=== PATIENT | male | born 2005 | race Caucasian/White ===

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

== ENCOUNTER 2024-02-05 08:12 | Emergency (ER) | payer BC, OTHER ==
[~2024-02-05] VITALS: Ht 177.8 cm; Wt 130.2 kg
[~2024-02-05 08:12] MED LIST: NOXI1TAB PO; ONDA-282 PO
[2024-02-05] MEDS ORDERED: IBUP200C25 PO (09:24)
[2024-02-05] MEDS ORDERED: CIPR7.5D2 AS (10:15)
[2024-02-05] MEDS ORDERED: CEFD1CAP9 PO (10:15)
[2024-02-05 10:26] VITALS: BP 120/63; TEMP 97.9; O2SAT 97
[2024-02-05] MEDS: dexAMETHasone 4 MG TAB PO ONE (10:26)
== END 2024-02-05 10:31 | disposition home or self-care (01) ==
LOC: M ED 08:12
DX: H66.92 Otitis media, unspecified, left ear (principal); Z79.2 Long term (current) use of antibiotics; Z79.1 Long term (current) use of non-steroidal anti-inflammatories (NSAID)

== ENCOUNTER → 2024-06-16 | Outpatient (REF) | payer BC ==
[~2024-06-16] MED LIST changes: +CEFD1CAP9 PO; +CIPR7.5D2 AS; +IBUP200C25 PO
[2024-06-16 19:44] LABS: ALKALINE PHOSPHATASE 91 U/L (40-129); ALT/SGPT 28 U/L (7.0-40); AST/SGOT 24 U/L (<34); BILIRUBIN,TOTAL 0.3 MG/DL (0.3-1.2); BLOOD UREA NITROGEN 16 MG/DL (9-23); CALCIUM LEVEL 9.6 MG/DL (8.5-10.1); CARBON DIOXIDE LEVEL 29 MMOL/L (20-31); CHLORIDE LEVEL 102 MMOL/L (98-107); CREATININE FOR GFR 0.93 MG/DL (0.70-1.30); GLUCOSE, FASTING 69 MG/DL (60-100); POTASSIUM SERUM 4.3 MMOL/L (3.5-5.1); SODIUM LEVEL 138 MMOL/L (136-145); TOTAL PROTEIN 7.9 G/DL (5.7-8.2)
[2024-06-16 19:45] LABS: CPK CREATINE PHOSPHOKINASE 367 U/L (46-171)
== END ==
LOC: M LABWUC 16:40
PROVIDERS: ATTEND Physician Assistant
DX: L70.0 Acne vulgaris (principal)